=== PATIENT | female | born 1965 | race Caucasian/White ===

== ENCOUNTER → 2023-05-13 17:05 | Outpatient (REF) | payer OTHER, SELFPAY | LOC: HWWDC 17:05 | PROVIDERS: ATTENDING PHYSICIAN Nurse Practitioner Adult Health; FAMILY PHYSICIAN Family Medicine | DX: Z12.31 Encounter for screening mammogram for malignant neoplasm of breast (principal) | CPT/HCPCS: 77063; 77067 ==

== ENCOUNTER → 2023-08-06 15:25 | Outpatient (REF) | payer OTHER, SELFPAY | LOC: HWRCS 15:25 | PROVIDERS: ATTENDING PHYSICIAN Internal Medicine Cardiovascular Disease; FAMILY PHYSICIAN Physician Assistant Medical | DX: R06.02 Shortness of breath (principal); R06.09 Other forms of dyspnea | CPT/HCPCS: 93306 ==

== ENCOUNTER → 2024-06-23 15:52 | Outpatient (REF) | payer OTHER, SELFPAY | LOC: HWWDC 15:52 | PROVIDERS: ATTENDING PHYSICIAN Nurse Practitioner Adult Health; FAMILY PHYSICIAN Physician Assistant Medical | DX: Z12.31 Encounter for screening mammogram for malignant neoplasm of breast (principal) | CPT/HCPCS: 77063; 77067 ==